=== PATIENT | female | born 1995 | race American Indian/Alaskan Native ===

== ENCOUNTER 2019-04-16 10:30 | Emergency (ER) | payer BC ==
[2019-04-16 11:01] LABS: Hematocrit 37.8 % (30.3-42.9); Hemoglobin 12.8 gm/dl (10.1-14.3); Mean Corpuscular HGB Conc 34 % (30-34); Mean Corpuscular Volume 83 fl (79-97); Platelet Count 132 K/mm3 (140-440); Red Blood Count 4.55 M/mm3 (3.65-5.03); Red Cell Distribution Width 12.8 % (13.2-15.2)
--- NOTE | 2019-04-16 11:43 | Emergency Department Report ---
ED Abdominal Pain HPI - General Chief Complaint: Abdominal Pain Stated Complaint: L SIDE PELVIC PAIN Time Seen by Provider: 04/16/19 11:00 Source: patient Mode of arrival: Ambulatory Limitations: No Limitations - History of Present Illness Initial Comments: Rogerio is a 24-year-old female who is currently 14 weeks . This is her first . Yesterday she had the sudden onset of left pelvic pain. Lasted for 35 minutes. Improved with position change. Pain recurred today. Not as severe. Mild intermittent pain. Pain is sharp without radiation. She denies vaginal bleeding. She denies vomiting. She just wants to make sure everything is okay with this . She's had previous ultrasound which was normal according to report. MD Complaint: other (left groin) -: Sudden, days(s) (1) Location: LLQ Radiation: none Severity: mild, severe Quality: sharp Consistency: intermittent, now resolved Improves With: other (position change) Associated Symptoms: denies other symptoms - Related Data Allergies Allergy/AdvReac Type Severity Reaction Status Date / Time No Known Allergies Allergy Unverified 04/16/19 10:33 ED Review of Systems ROS: Stated complaint: L SIDE PELVIC PAIN Other details as noted in HPI Comment: All other systems reviewed and negative Constitutional: denies: fever, malaise Respiratory: denies: cough Cardiovascular: denies: chest pain ED Past Medical Hx - Past Medical History Previous Medical History?: No - Surgical History Past Surgical History?: No - Social History Smoking Status: Never Smoker Substance Use Type: None ED Physical Exam - General Limitations: No Limitations General appearance: alert, in no apparent distress, other (appears comfortable, appears well, sitting on the table Icelandic style) - Head Head exam: Present: atraumatic, normocephalic - Eye Eye exam: Present: normal appearance - ENT ENT exam: Present: mucous membranes moist - Neck Neck exam: Present: normal inspection, full ROM - Respiratory Respiratory exam: Present: normal lung sounds bilaterally. Absent: respiratory distress, wheezes, rales - Cardiovascular Cardiovascular Exam: Present: regular rate, normal rhythm, normal heart sounds. Absent: systolic murmur, diastolic murmur, rubs, gallop - GI/Abdominal GI/Abdominal exam: Present: soft, normal bowel sounds. Absent: distended, tenderness, guarding, rebound - Extremities Exam Extremities exam: Present: normal inspection - Back Exam Back exam: Present: normal inspection - Neurological Exam Neurological exam: Present: alert, oriented X3 - Psychiatric Psychiatric exam: Present: normal affect, normal mood - Skin Skin exam: Present: warm, dry, intact, normal color. Absent: rash ED Course Vital Signs 04/16/19 10:41 Temperature 97.9 F Pulse Rate 86 Respiratory 18 Rate Blood Pressure 112/64 [Right] O2 Sat by Pulse 98 Oximetry ED Medical Decision Making - Lab Data Result diagrams: 04/16/19 10:44 04/16/19 10:44 Laboratory Results - last 24 hr 04/16/19 04/16/19 10:44 10:44 WBC 7.9 RBC 4.55 Hgb 12.8 Hct 37.8 MCV 83 MCH 28 MCHC 34 RDW 12.8 L Plt Count 132 L Sodium 137 Potassium 4.0 Chloride 102.0 Carbon Dioxide 22 Anion Gap 17 BUN 7 Creatinine 0.6 L Estimated GFR > 60 BUN/Creatinine Ratio 12 Glucose 81 Calcium 9.3 - Medical Decision Making Left pelvic pain, first : Diagnosis includes round ligament pain, ovarian cysts. Ectopic has been ruled out previously and today. Given reassurance. Recommended Tylenol and heat if pain returns. She was given miscarriage precautions I reviewed labs. CBC chemistry within normal limits. Critical care attestation.: If time is entered above; I have spent that time in minutes in the direct care of this critically ill patient, excluding procedure time. ED Disposition Clinical Impression: Pelvic pain affecting Disposition: DC-01 TO HOME OR SELFCARE Is pt being admited?: No Does the pt Need Aspirin: No Condition: Stable Instructions: Abdominal Pain in (ED) Referrals: LASHON AMBROSE MD [Primary Care Provider] - 3-5 Days
[2019-04-16 11:46] LABS: BUN/Creatinine Ratio 12; Blood Urea Nitrogen 7 mg/dL (7-17); Calcium 9.3 mg/dL (8.4-10.2); Hemolysis Index 52
--- NOTE | 2019-04-16 12:20 | Ultrasound Report ---
OB ULTRASOUND History: Left pelvic pain. Technique: Transabdominal ultrasound with Doppler interrogation. Gestation: Single Position: Variable Amniotic Fluid: Within normal limits Placenta: Fundal Placental Grade: 0 Heart Rate: 152 BPM Cervical length: 4-5 cm (Normal > 3 cm) BPD: 3.0 cm = 15 w 3 d HC: 10.5 cm = 15 w d AC: 8.0 cm = 14 w 3 d FL: 1.5 cm = 14 w 3 d HC/AC Ratio: 1.31 Cephalic Index: 86.4 LMP: 01/10/19 Clinical age = 13 w 5 d EDC: 10/17/19 US Gest. Age = 14 w 5 d EDC: 10/10/19 Comment: A left adnexal cyst is identified measuring 3.9 x 3.2 x 2.9 cm. IMPRESSION: Viable, single intrauterine as described. Left ovarian cyst.
[2019-04-16 12:47] VITALS: BP 103/60
== END 2019-04-16 12:48 | disposition home or self-care (01) ==
LOC: ED 10:30
DX: O26.891 Other specified pregnancy related conditions, first trimester (principal); R10.2 Pelvic and perineal pain; Z3A.13 13 weeks gestation of pregnancy
CPT/HCPCS: 36415; 76805; 80048; 84702; 85027; 86850; 86900; 86901

== ENCOUNTER 2019-04-30 14:16 | Outpatient (CLI) | payer BC ==
[2019-05-08 07:39] LABS: AFP, Serum SEE SCANNED RESULT; Estradiol SEE SCANNED RESULT; Maternal Weight SEE SCANNED RESULT
[2019-05-08 07:40] LABS: Hx of Neural Tube Defect SEE SCANNED RESULT; Number of Fetuses SEE SCANNED RESULT
== END 2019-04-30 14:17 | disposition home or self-care (01) ==
LOC: LAB 14:16
PROVIDERS: ATTEND Advanced Practice Midwife
DX: Z34.02 Encounter for supervision of normal first pregnancy, second trimester (principal); Z3A.16 16 weeks gestation of pregnancy
CPT/HCPCS: 36415; 82106; 85660; 86803; 87086; 87806

== ENCOUNTER 2019-06-26 11:12 | Outpatient (CLI) | payer BC ==
[2019-06-26 11:40] LABS: Hematocrit 36.9 % (30.3-42.9); Hemoglobin 12.2 gm/dl (10.1-14.3)
== END 2019-06-26 11:13 | disposition home or self-care (01) ==
LOC: LAB 11:12
PROVIDERS: ATTEND Obstetrics & Gynecology
DX: Z34.02 Encounter for supervision of normal first pregnancy, second trimester (principal)
CPT/HCPCS: 36415; 85014; 85018

== ENCOUNTER 2019-07-06 07:11 | Outpatient (CLI) | payer BC ==
[2019-07-06 07:52] LABS: Hemoglobin 11.7 gm/dl (10.1-14.3)
== END 2019-07-06 07:12 | disposition home or self-care (01) ==
LOC: LAB 07:11
DX: Z34.02 Encounter for supervision of normal first pregnancy, second trimester (principal)
CPT/HCPCS: 36415; 82951; 83036; 85014; 85018; 86592; 86706; 86762; 86850; 86900; 86901

== ENCOUNTER 2019-07-07 15:23 | Outpatient (CLI) | payer BC ==
[2019-07-07] MEDS ORDERED: LACTATED RINGERS 500 ML IV ONE (15:41)
[2019-07-07] MEDS ORDERED: ONDANSETRON 4 MG/2 ML INJ IV ONE (15:43)
[2019-07-07 15:50] VITALS: BP 106/67
[2019-07-07 16:05] LABS: Basophils # (Auto) 0.1 K/mm3 (0.0-0.1); Basophils % (Auto) 0.5 % (0.0-1.8); Eosinophils # (Auto) 0.1 K/mm3 (0.0-0.4); Eosinophils % (Auto) 0.8 % (0.0-4.3); Hematocrit 40.4 % (30.3-42.9); Hemoglobin 13.3 gm/dl (10.1-14.3); Lymphocytes # (Auto) 0.5 K/mm3 (1.2-5.4); Lymphocytes % (Auto) 4.3 % (13.4-35.0); Mean Corpuscular HGB Conc 33 % (30-34); Mean Corpuscular Volume 84 fl (79-97); Monocytes # (Auto) 0.6 K/mm3 (0.0-0.8); Monocytes % (Auto) 4.5 % (0.0-7.3); Platelet Count 129 K/mm3 (140-440); Red Blood Count 4.84 M/mm3 (3.65-5.03); Red Cell Distribution Width 12.8 % (13.2-15.2)
[2019-07-07 16:21] LABS: Bilirubin,Urine NEG (Negative); Blood,Urine NEG (Negative); Color,Urine Yellow (Yellow); Protein,Urine <15 mg/dL mg/dL (Negative); Urobilinogen,Urine < 2.0 mg/dL (<2.0)
[2019-07-07 16:28] LABS: BUN/Creatinine Ratio 12; Blood Urea Nitrogen 6 mg/dL (7-17); Calcium 9.4 mg/dL (8.4-10.2); Hemolysis Index 6
[2019-07-07] MEDS ORDERED: PROMETHAZINE 25 MG RECT SUPP PR ONE (18:45)
== END 2019-07-07 18:11 | disposition home or self-care (01) ==
LOC: TRG 15:23 → LD 15:24 → TRG 18:11
PROVIDERS: ATTEND Obstetrics & Gynecology
DX: O21.2 Late vomiting of pregnancy (principal); O26.892 Other specified pregnancy related conditions, second trimester; R19.5 Other fecal abnormalities; Z3A.23 23 weeks gestation of pregnancy
CPT/HCPCS: 36415; 59025; 80048; 81001; 85025; 96374; J2405; J7120; 96360; 96361

== ENCOUNTER 2019-07-21 07:37 | Outpatient (CLI) | payer BC ==
[2019-07-21] MEDS ORDERED: LACTATED RINGERS 500 ML IV ONE (08:01)
== END 2019-07-21 08:18 | disposition home or self-care (01) ==
LOC: OR 07:37 → LD 07:42 → OR 08:18
PROVIDERS: ATTEND Obstetrics & Gynecology
DX: O26.893 Other specified pregnancy related conditions, third trimester (principal); R42 Dizziness and giddiness; R61 Generalized hyperhidrosis; Z3A.28 28 weeks gestation of pregnancy
CPT/HCPCS: 59025; 96360

== ENCOUNTER 2019-08-12 08:37 | Outpatient (CLI) | payer BC ==
[2019-08-12] MEDS ORDERED: DEXTROSE IV SCH (10:30)
[2019-08-12] MEDS ORDERED: LACTATED RINGERS IV SCH (10:30)
--- NOTE | 2019-08-12 11:13 | Ultrasound Report ---
ULTRASOUND BIOPHYSICAL PROFILE ULTRASOUND OB LIMITED INDICATION: labor TECHNIQUE: Transabdominal ultrasound imaging. COMPARISON: 04/16/2019 FINDINGS: breathing movement = 2 Gross body movement = 2 tone = 2 Qualitative amniotic fluid volume = 2 Total biophysical score = 8/8 Amniotic fluid index is 13.0 cm. Presentation is cephalic. heart rate is 150 beats per minute. IMPRESSION: biophysical profile equals 8/8. Signer Name: Aurelio Kennedy Jr, MD Signed: 08/12/2019 11:09 AM Workstation Name: [id number]
[2019-08-12 12:37] VITALS: BP 109/71
== END 2019-08-12 14:14 | disposition home or self-care (01) ==
LOC: LD 08:37 → TRG 08:37
PROVIDERS: ATTEND Obstetrics & Gynecology
DX: O26.893 Other specified pregnancy related conditions, third trimester (principal); R42 Dizziness and giddiness; O62.9 Abnormality of forces of labor, unspecified; Z3A.31 31 weeks gestation of pregnancy
CPT/HCPCS: 76815; 76819; 82962; 96360; 96361; J7121

== ENCOUNTER 2019-08-26 13:04 | Outpatient (CLI) | payer BC ==
[2019-08-26 13:07] VITALS: BP 112/64
[2019-08-26] MEDS ORDERED: D5W/LACTATED RINGERS 1,000 ML IV SCH (14:00)
--- NOTE | 2019-08-26 15:03 | XRay Report ---
CHEST 1 VIEW INDICATION: shortness of breath. COMPARISON: None FINDINGS: Support devices: None. Heart: Within normal limits. Lungs/Pleura: No acute air space or interstitial disease. Additional findings: None. IMPRESSION: No acute findings. Signer Name: Aurelio Kennedy Jr, MD Signed: 08/26/2019 2:59 PM Workstation Name: [id number]
[2019-08-26] MEDS ORDERED: NIFEdipine XL 30 MG TAB PO ONE (15:54)
== END 2019-08-26 17:30 | disposition home or self-care (01) ==
LOC: TRG 13:04 → LD 13:05 → TRG 17:30
PROVIDERS: ATTEND Obstetrics & Gynecology
DX: O26.893 Other specified pregnancy related conditions, third trimester (principal); R06.02 Shortness of breath; R55 Syncope and collapse; Z3A.33 33 weeks gestation of pregnancy
CPT/HCPCS: 71045; 82962; 93005; 93010; J7121

== ENCOUNTER 2019-09-03 12:32 | Outpatient (CLI) | payer BC | END 2019-09-03 12:33 | disposition home or self-care (01) | LOC: ECHO 12:32 | PROVIDERS: ATTEND Internal Medicine Cardiovascular Disease | DX: R94.31 Abnormal electrocardiogram [ECG] [EKG] (principal); R55 Syncope and collapse; R06.00 Dyspnea, unspecified | CPT/HCPCS: 93306 ==

== ENCOUNTER 2019-09-07 10:45 | Outpatient (CLI) | payer BC ==
[2019-09-15 06:23] LABS: HIV-1 Antibody Differentiation SEE SCANNED RESULT; HIV-2 Antibody Differentiation SEE SCANNED RESULT
== END 2019-09-07 10:46 | disposition home or self-care (01) ==
LOC: LAB 10:45
PROVIDERS: ATTEND Obstetrics & Gynecology
DX: Z34.03 Encounter for supervision of normal first pregnancy, third trimester (principal); Z3A.36 36 weeks gestation of pregnancy
CPT/HCPCS: 36415; 86592; 86689